=== PATIENT | male | born 1950 | race Caucasian/White ===

== ENCOUNTER 2016-11-01 11:40 | Inpatient (IN) | payer BC, MEDICARE ==
[~2016-11-01] VITALS: Ht 188 cm; Wt 110.4 kg
--- NOTE | ~2016-11-01 | CN ---
Consultation Report [facility] [address] [place]. [address] NAME: JEANA JAFFE : 46 STATUS : ADM IN [facility]#: [id number] AGE: 66 ADM/REG DATE : 11/01/16 MR#: [id number] REPORT SERV DATE: 11/02/16 DICTATED BY: BLAKE MUNIZ DATE: 11/02/16 REPORT STATUS : Draft TRANSCRIBED BY: RADHA DATE: 11/02/16 DATE OF CONSULTATION: 11/02/2016 CHIEF COMPLAINT: Falls and syncope. REASON FOR CONSULTATION: Atrial fibrillation. SOURCE: The patient and the chart. HISTORY OF PRESENT ILLNESS: Mr. Jaffe is a very pleasant 66-year-old white man with history of carotid artery disease, status post previous stroke and right carotid endarterectomy and right carotid stent in 2012 who was in his usual state of health until August when he began having falls. He had a fall 3 days ago and injured his eye. He waited until yesterday to come to the emergency room and was admitted for further care. He has had poor balance, dizziness, and possibly some loss of consciousness. He has tremors when he has these episodes but denies overt tonic-colonic seizure activity. He denies any tongue biting or loss of bowel or bladder control. After these episodes, he has slurred speech. He has not had any palpitations. No chest pain or shortness of breath. ALLERGIES: NO KNOWN DRUG ALLERGIES. MEDICATIONS: As per his home list included albuterol aspirin, carvedilol, cholecalciferol, Vytorin, gabapentin, hydrocodone, meclizine, metformin, phenytoin, ramipril, Aspercreme, and flavonoids. CARDIAC RISK FACTORS: 06/12. PAST MEDICAL HISTORY: Significant for stroke in 2001. At [facility], he had right carotid endarterectomy. He then had right carotid angioplasty and stenting in 2012. He has had herniorrhaphy, cervical disk surgery, and contracture surgery. He has never had any heart problems or atrial fibrillation. SOCIAL HISTORY: The patient lives in [place]. He is . He has two children, alive and well. He is disabled due to stroke. FAMILY HISTORY: Positive for coronary artery disease. Brother had myocardial infarction in his 50s. PHYSICAL EXAMINATION: GENERAL: He is a well-developed, well-nourished, elderly white man, lying in bed on BiPAP in ICU. VITAL SIGNS: The blood pressure is 148/74, pulse 90, temperature 99 degrees Fahrenheit, weight is 105 kg, oxygen saturation 98% on 40% oxygen, and telemetry reveals atrial fibrillation. HEENT: Sclerae anicteric. Lips without cyanosis. Carotids 2+ and symmetrical. Right Consultation Report [address] [place]. [address] NAME: JEANA JAFFE : 46 STATUS : ADM IN [facility]#: [id number] AGE: 66 ADM/REG DATE : 11/01/16 MR#: [id number] REPORT SERV DATE: 11/02/16 DICTATED BY: BLAKE MUNIZ DATE: 11/02/16 REPORT STATUS : Draft TRANSCRIBED BY: RADHA DATE: 11/02/16 carotid endarterectomy scar. LUNGS: Diminished breath sounds throughout. Fair air movement. No use of accessory muscles. HEART: Regular rate and rhythm without any murmur, gallop, or rub. ABDOMEN: Positive bowel sounds. Soft and nontender. EXTREMITIES: Pulses 2+ and symmetrical. No cyanosis, clubbing, or edema. BACK: No CVA tenderness. MUSCULOSKELETAL: Diminished tone. NEUROLOGIC: Alert and oriented x3. IMAGING: EKG reveals atrial fibrillation with a rate of 101 beats per minute, left axis deviation, anterior myocardial infarction of undetermined age. LABORATORY EXAMINATION: Blood gas; pH 7.37, pCO2 45, PO2 94, oxygen saturation 96.8% on BiPAP 15/5, 40%. The chest x-ray reveals satisfactory left PICC line, right basilar discoid atelectasis. Cardiac size remains enlarged. The electrolyte profile, ammonia level was 50, the lactate was 1.3, the sodium 139, potassium 4, chloride 102, CO2 31, glucose 118, BUN 11, creatinine 0.68, and troponin of 0.03. TSH of 1.79. The drug screen, urine positive for cannabinoids otherwise negative. CBC: White count 7.9, hemoglobin 12.5, hematocrit 40.2, and platelets 221,000, INR 1.1. IMAGING STUDIES: Brain CT without contrast, marked motion degraded exam, limits diagnostic ability, stable moderate diffuse cerebral involutional changes and mild deep white matter chronic microvascular ischemic change, old CVA in medial right occipital lobe. No acute intracranial pathology or other acute intracranial pathology. The CT of the chest and the back, minor subsegmental atelectasis, posterior medial right lung base, and posterior segment left upper lobe. No displaced rib fracture, pneumothorax, or cardiomegaly. No acute abdominal or pelvic pathology. Prostate enlargement. The cervical spine markedly non standard imaging planes of the patient's scan in the left side decubitus position with oblique alignment of the cervical spine distorting the usual planes of imaging. No acute fracture or subluxation. Anterior diskectomy and fusion C5 to C7 stable from 2012, moderate to severe degenerative disk disease C7-T1, moderate bony neuroforaminal narrowing bilaterally, increased from 2012, moderate bony neuroforaminal narrowing bilaterally at C3- C4 of uncertain clinical segments increased from 2013. BNP level of 264. The urinalysis, specific gravity 1.005, pH 7, glucose 50, moderate blood, less than 1 red cell, and 2 white cells. We also have a carotid ultrasound from 10/19/2016, right carotid grade 1 less than 50%, left carotid grade 2 50-69%, patent stent right carotid with elevated velocities. Flow could not be visualized in the left vertebral artery, antegrade flow right vertebra. IMPRESSION: 1. New atrial fibrillation, controlled rate. 2. CHADS2 score of at least 2 to 4. 3. History of carotid artery disease, status post prior right carotid endarterectomy and right carotid angioplasty and stenting in 2012 with patency by ultrasound earlier this month. Consultation Report [address] [place]. [address] NAME: JEANA JAFFE : 46 STATUS : ADM IN [facility]#: [id number] AGE: 66 ADM/REG DATE : 11/01/16 MR#: [id number] REPORT SERV DATE: 11/02/16 DICTATED BY: BLAKE MUNIZ DATE: 11/02/16 REPORT STATUS : Draft TRANSCRIBED BY: RADHA DATE: 11/02/16 4. Grade 2 left carotid by ultrasound. 5. Old stroke 2002 at [place]. 6. Falls and syncope, possible seizures or new stroke. 7. Cardiac risk factors of 5/5. 8. Status post cervical disk surgery. 9. Respiratory failure, improving. RECOMMENDATIONS: 1. Check TSH, already done. 2. Echocardiogram. 3. MRI brain or repeat head CT in a few days to look for any new stroke. 4. Neurologic evaluation, EEG. 5. Consider anticoagulation when okay with Neurology. 6. Observation on telemetry. 7. Continue statin therapy. BN/MODL Blake Muniz M.D. / [id number] CC: Nusrat Odell M.D.
--- NOTE | ~2016-11-01 | HP ---
History And Physical [place] [address] [facility] [place]. [address] NAME: JEANA JAFFE : 46 STATUS : ADM IN [facility]#: [id number] AGE: 66 ADM/REG DATE : 11/01/16 MR#: [id number] REPORT SERV DATE: 11/01/16 DICTATED BY: KAREL PIERRE DATE: 11/01/16 REPORT STATUS : Draft TRANSCRIBED BY: MODL DATE: 11/01/16 DATE OF ADMISSION: 11/01/2016 HISTORY OF PRESENT ILLNESS: This is a 66-year-old patient, whom I was asked to see by Dr. Torres. The patient came to the emergency room, was brought in by his family after he fell at home, hitting his left eye on a table. Apparently, the patient has been having frequent falls at home over the last month. He is totally unresponsive during these times. There was no obvious seizure activity noted and no loss of bowel or bladder or tongue biting. During his evaluation in the emergency room, the patient was sent for a CT scan of the head and became somewhat restless and was given 2 mg of IV Ativan. Shortly thereafter, he became more unresponsive. An ABG was done and showed an increased pCO2 and the patient was placed on BiPAP for this reason. He currently is being admitted to the CV ICU for closer monitoring and care and to rule out the possibility of seizure activity or perhaps an arrhythmia causing his multiple falls. The family states that his p.o. intake has decreased over the last few days. He has not traveled anywhere. He has not been exposed to any outdoor tick bites and has had no fevers, nausea, vomiting, diarrhea. There also is no complaint of chest pain. ALLERGIES: THE PATIENT HAS NO KNOWN DRUG ALLERGIES. MEDICATIONS: Currently at home are Ventolin inhaler, aspirin 81 mg, carvedilol 12.5 mg b.i.d., cholecalciferol 2000 unit tablet daily, Vytorin 10/80 at bedtime, Neurontin 300 mg twice daily, hydrocodone 5 mg one tablet three times a day p.r.n., Antivert 25 mg p.o. three times a day p.r.n., Glucophage 500 mg twice daily, phenytoin 300 mg twice daily, ramipril 10 mg daily, Aspercreme p.r.n. for arthritis, and flavonoid for ear ringing. PAST MEDICAL HISTORY: 1. Significant for seizures since 1996, etiology is not entirely clear. Apparently, according to family, he presented with falling. 2. He has history of carotid stent placement done by Dr. Gaffney in 2012. He is status post hernia repair. 3. He has a history of chronic pain. 4. He has cervical spine surgery. 5. Hyperlipidemia. 6. Type 2 diabetes mellitus[address] scan done today, he has a previous CVA. FAMILY HISTORY: Significant for CVA and coronary artery disease and seizures as well. SOCIAL HISTORY: The patient is and retired. Used to work in construction. Lives at home with his . Has two children. Smokes pot, but has no significant history of nicotine abuse or alcohol abuse. REVIEW OF SYSTEMS: Review of systems was unable to be obtained from the patient since he was somnolent and on BiPAP. History And Physical [address] [address] NAME: JEANA JAFFE : 46 STATUS : ADM IN [facility]#: [id number] AGE: 66 ADM/REG DATE : 11/01/16 MR#: [id number] REPORT SERV DATE: 11/01/16 DICTATED BY: KAREL PIERRE DATE: 11/01/16 REPORT STATUS : Draft TRANSCRIBED BY: RADHA DATE: 11/01/16 PHYSICAL EXAMINATION: GENERAL: The patient was extremely somnolent and difficult to arouse. VITAL SIGNS: Blood pressure was high at 172/79, temp is 97.9, pulse is 94, respiratory rate is 21, O2 saturation on 2 L was 94%. HEENT: The patient currently is on BiPAP, barely responsive. Head shows trauma to the left orbit of the eye with possible abrasion of the cornea. Oral mucosa could not be examined. NECK: Supple without JVD, lymphadenopathy, or thyromegaly. LUNGS: Diminished markedly, right base greater than left base. CARDIAC: Reveals an irregularly irregular rhythm. No significant murmurs. ABDOMEN: Obese, nondistended. Bowel sounds are present, but diminished. There are some old bruising of the anterior abdomen. RECTAL/GENITAL: Deferred. EXTREMITIES: Without cyanosis or clubbing, but the patient has significant 1+ edema of the lower extremities with excoriations that the family states are self-inflicted. He also has very fragile appearing skin on the upper extremities, but is not currently on steroids and multiple small ecchymotic areas. NEUROLOGIC: The patient has some decreased range of motion on the left side, but otherwise difficult to determine the rest of his neurologic exam secondary to his obtunded state. LABORATORIES: Urine drug screen was done and was positive for cannabinoids. CT scan of the head was done showed no new hemorrhage, but did show an old CVA in the right occipital lobe. ABG initially showed a pH of 7.23, pCO2 of 84, PO2 of 164 with a bicarbonate of 33, this was on a non-rebreather. White cell count was 7.9, hemoglobin 12, hematocrit 40, and platelet count 221. Repeat ABG on BiPAP showed a pH of 7.30, pCO2 of 62, PO2 of 77, bicarbonate of 29 on 15/, 14 rate, and FiO2 of 50. Cervical spine x-ray showed no acute fracture or subluxation, severe DJD, C7-T1. Procalcitonin is less than 0.05. Sodium 139, potassium 4.0, chloride 102, bicarb 31, BUN 11, creatinine 0.68, glucose 118. LFTs within normal limits. Lipase is normal. Troponin is 0.03. TSH is 1.79. CT scan of the abdomen and pelvis status post trauma showed minor subsegmental atelectasis posterior medial right lung base, posterior segment of the left upper lobe, no displaced rib fracture or pneumothorax, cardiomyopathy. The liver, spleen, gallbladder, pancreas, adrenal glands and kidneys were unremarkable. There also was prostate enlargement with probable BPH. Lactic acid level was 1.3. Ammonia level was 56. TSH was 1.86. LFTs were normal, and Dilantin level was 10.6. ASSESSMENT AND PLAN: 1. This is a 66-year-old patient, who was brought in by family after a major fall at home and has been falling at least for the past month. He has a known history of seizure activity and this could very well be seizure related. Cerebrovascular accident, of course, is a possibility. Neurology has been consulted and will evaluate the patient. It is possible that he was in a postictal state when he was brought in, however, no seizures were noted in the ER. His obtundation at this point more than likely is contributed to by receiving 2 mg of IV Ativan. The patient has no significant history of chronic obstructive pulmonary disease or smoking and so BiPAP will be initiated and kept until the patient is more awake and able to ventilate properly. He will be placed on bronchodilator protocol. 2. Carotid disease, history of coronary artery disease, atrial fibrillation. CHI has been History And Physical [place] [address] [place]. [address] NAME: JEANA JAFFE : 46 STATUS : ADM IN [facility]#: [id number] AGE: 66 ADM/REG DATE : 11/01/16 MR#: [id number] REPORT SERV DATE: 11/01/16 DICTATED BY: KAREL PIERRE DATE: 11/01/16 REPORT STATUS : Draft TRANSCRIBED BY: RADHA DATE: 11/01/16 consulted. 3. Hypertension. We will initiate home medications if possible but if not, he will receive IV Lopressor and/or hydralazine to control his heart rate and his blood pressure and possibly may be even need Cardene drip. 4. Possibility of infection, probably not very high index of suspicion since procalcitonin is less than 0.05, but since the patient has a decrease in mental status. It is always a possibility of aspiration. 5. Type 2 diabetes mellitus will be placed on a sliding insulin scale. His Glucophage will be held. 6. Hyperlipidemia. Continue Vytorin when able. 7. DVT prophylaxis with Lovenox. 8. The patient's condition is extremely guarded and he is at risk for further deterioration from respiratory zuniga and possibly even intubation as well as further seizures and/or neurologic event. Code status has been discussed with the family and they are to discuss and make a decision as to whether or not intubation would be desired if needed. So, total critical care time with this patient was initiated in the emergency room from 5:15 to 6:18 for a total of 63 minutes critical care time. The patient was seen again at 8:40 p.m. since I was called away for a code and for an additional 30 minutes and further evaluation in the CV ICU for a total of 93 minutes CCM time. OLIMPIA/RADHA Karel Pierre M.D. / [id number] CC: Nusrat Odell M.D.
--- NOTE | ~2016-11-01 | CN ---
Consultation Report [facility] [address] [place]. [address] NAME: JEANA JAFFE : 46 STATUS : ADM IN [facility]#: [id number] AGE: 66 ADM/REG DATE : 11/01/16 MR#: [id number] REPORT SERV DATE: 11/01/16 DICTATED BY: LUIS HARTMAN DATE: 11/01/16 REPORT STATUS : Draft TRANSCRIBED BY: RADHA DATE: 11/01/16 NEUROLOGICAL EVALUATION CONSULTATION CVICU. DATE OF CONSULTATION: 11/01/2016 LOCATION OF THE PATIENT: CVICU, Bed 17. HISTORY OF PRESENT ILLNESS: This is a 66-year-old male with known history of seizure disorder, past history of CVA, carotid endarterectomy, history of COPD, diabetes mellitus, coronary artery disease who was admitted through the emergency room after an episode of falling, loss of consciousness, possible seizures, and head trauma. The patient's family provided additional history. The patient's stated that the patient has had seizures since 2001. At that time, the patient has suffered a stroke, which left him with residual left-sided weakness and tremor. The patient has been taking Dilantin 300 mg twice a day provided by primary physician. The patient has not seen a neurologist in the last 10 years. The patient has had several episodes of falling, which were described as primary attacks that the patient himself could not describe when questioned by his daughters. The daughter, who provided additional information stated that the patient would just fall and would regain consciousness as soon as he would "hit the floor." There was no urinary incontinence associated with these episodes. No episodes of tonic-clonic activity were described. The patient has had seizures intermittently despite the fact that he has been apparently taking his Dilantin on a regular basis. PAST MEDICAL HISTORY: Significant history of hypertension, coronary artery disease, diabetes mellitus, hypercholesterolemia, COPD, and history of seizure disorder since CVA in 2001. ALLERGIES: NO KNOWN ALLERGIES. MEDICATIONS: Prior to admission at home included phenytoin 300 mg twice a day (three 100 mg capsules twice a day), gabapentin 300 mg at bedtime, b.i.d., meclizine 25 mg t.i.d., "Flavonoid" one tablet p.o. daily, aspirin chewable 81 mg p.o. daily, carvedilol 12.5 mg p.o. b.i.d., ezetimibe/simvastatin 10/80, which is Vytorin 10/80 one tablet p.o. daily, ramipril 10 mg p.o. daily, metformin 500 mg p.o. twice a day, vitamin D 2000 units one tablet p.o. daily. FAMILY HISTORY: Significant history of stroke in the patient's sister. Family history of epilepsy in several members of the patient's family. PAST SURGICAL HISTORY: Includes carotid endarterectomy and cervical spine surgery with titanium plate implanted. REVIEW OF SYSTEMS: As mentioned before, the patient's family stated that the patient has had episodes of falling as described above. Has no recollection or an aura preceding the falls. No history Consultation Report [address] [place]. [address] NAME: JEANA JAFFE : 46 STATUS : ADM IN [facility]#: [id number] AGE: 66 ADM/REG DATE : 11/01/16 MR#: [id number] REPORT SERV DATE: 11/01/16 DICTATED BY: LUIS HARTMAN DATE: 11/01/16 REPORT STATUS : Draft TRANSCRIBED BY: RADHA DATE: 11/01/16 of chest pain or shortness of breath. The patient apparently has chronically uses inhalants albuterol one puff p.r.n. and every four hours as needed. No recent complaints of chest pain voiced. The patient did not have recent seizure. His last MRI is not clear when the patient had. He is apparently extremely claustrophobic. The patient has not been very cooperative. He has been followed by his primary physician, who will arrange for the patient to have an appointment with Dr. Wright, neurologist. The appointment scheduled at the end of February. The rest of 14-point of review of systems was negative. SOCIAL HISTORY: By description, the patient appears to have some cognitive problems since his stroke, left-sided neglect, and tremor involving the left arm has a stooped posture since his cervical spine surgery with neck bent forward, and the patient has a and several daughters. Social history otherwise is negative for alcohol use, not clear about cigarette smoking. The patient's carboxyhemoglobin was elevated on admission to the emergency room. His drug screen was positive for cannabinoids. PHYSICAL EXAMINATION: GENERAL: The patient was somnolent, difficult to arouse, not clear whether he received any medications on route in the emergency room, was on BiPAP. VITAL SIGNS: His blood pressure was 176/80, pulse was 111, respirations 20, temperature afebrile. HEAD AND NECK: Showed signs of recent trauma, which involved the left orbit and swelling in the upper lid was noted. The patient's left eye appeared ecchymotic. Pupils were small, reactive to light. The patient was not following commands or responding to painful stimuli. He was in left lateral position, which as per family is his preferred position secondary to the titanium plate in the cervical spine and kyphosis that he has had since his cervical surgery. The patient was on BiPAP, appeared have regular respiratory rate. Did not appear in acute distress. Appeared? Postictal and neck moderate limitation of cervical, passive range of motion was noted. CHEST: Symmetrical. Lungs: Showed crackles at the bases bilaterally. HEART: Auscultation of the heart, regular S1 and S2. Sinus tachycardia. Small healing hematoma was noted in the right upper abdomen secondary to previous falls. ABDOMEN: Obese. Appear soft and nontender. No organomegaly was detected. EXTREMITIES: Showed swelling bilateral in distal legs with trophic changes. Most likely, combination of diabetes and peripheral neuropathy with red shiny skin. Peripheral pulses were present throughout. SKIN: No petechiae, hemorrhages, or rash noted. NEUROLOGICAL EXAMINATION: The patient appeared postictal, did not respond to verbal stimuli. However, had strong withdrawal to painful stimuli in both lower extremities with bilateral Babinskis noted and withdrawal was more robust in the right arm than on the left. CRANIAL NERVE EXAMINATION 2 THROUGH 12: Visual harvey on confrontation could not be tested. The patient was not cooperative. Pupils were small, 2 mm reacted to light. There was no dysconjugate gaze. Corneal reflexes were present. No significant facial asymmetry was noted on examination. The rest of examination was very difficult to perform in view of Consultation Report [address] [place]. [address] NAME: JEANA JAFFE : 46 STATUS : ADM IN [facility]#: [id number] AGE: 66 ADM/REG DATE : 11/01/16 MR#: [id number] REPORT SERV DATE: 11/01/16 DICTATED BY: LUIS HARTMAN DATE: 11/01/16 REPORT STATUS : Draft TRANSCRIBED BY: MODL DATE: 11/01/16 patient's condition. MOTOR EXAM: Left arm appeared slightly more flaccid. Deep tendon reflexes were absent throughout. Babinski were positive bilaterally. SENSORY EXAM: Withdrawal to pain was symmetrical in both lower extremities. Left arm appeared more flaccid. LABORATORY STUDIES: Sodium 139, potassium 4, chloride 102, carbon dioxide 31, BUN 11, creatinine 0.68, GFR 98, glucose 118, calcium 8.6, total protein 7.1, albumin 3.5, globulin 3.6, total bilirubin 0.3, alkaline phosphatase 110, ALT 19, AST 12, lipase 185, B- natriuretic was 264.1, troponin 0.03. Drug screen positive for cannabinoids. TSH 1.79. Urinalysis essentially negative. Specific gravity 1.005, pH 7, glucose 50, ketones negative. ABGs; pH 7.3 initially 7.23, CO2 62, PCO2 84, bicarb 29.7 and 33.9, oxygen saturation low initially at 94.1, repeat 98.7, carboxyhemoglobin 3.5, methemoglobin 0.2 at O2 of 50%. CT scan of the head, extremely downgraded picture secondary to motion artifact with abnormal head positioning. Part of frontal lobes was not imaged secondary to poor cooperation. The patient's scan was positive for an area of encephalomalacia involving right occipital region secondary to the patient's stroke, which occurred in 2001. Moderate ventricular dilatation was noted. Skin was motion degraded. IMPRESSION: 1. Episodes of falling could not rule out recurrent seizures. The patient has recurrent seizures. History of seizure disorder since 2001, after at the cerebral vascular accident. 2. Cerebrovascular accident history 2001, possible recent stroke. 3. Long-standing history of Dilantin use. Rule out folate deficient, rule out deficiency, rule out osteoporosis, rule out peripheral neuropathy, has complications of long-term use of Dilantin. 4. History of cervical spine surgery with titanium plate implanted. 5. History of possible tobacco abuse chronic obstructive pulmonary disease. 6. Drug screen positive for cannabinoids. 7. Could not rule out a new stroke. 8. Rule out aspiration. 9. Recurrent falls with recurrent episodes of head trauma rule out postconcussive syndrome. 10.Partially treated seizures. The patient has seen a neurologist. Has been followed by primary physician since 2001. 11.Seizure precaution. 12.Risk of falling and injury. 13.Follow seizure precautions. No driving or operating heavy movement machinery, climbing heights or ladders. We will obtain repeat Dilantin level since the Dilantin level on admission was 10.2 - Subtherapeutic for seizure patient expect Dilantin levels to be around 15 to be effective and therapeutic. Recommend to add additional 500 mg of fosphenytoin IV. Stat monitor the patient's blood pressure while infusing it at rate 50 mg/minute, serum vitamin B12, folate Consultation Report [facility] [address] [place]. [address] NAME: JEANA JAFFE : 46 STATUS : ADM IN PAT#: [id number] AGE: 66 ADM/REG DATE : 11/01/16 MR#: [id number] REPORT SERV DATE: 11/01/16 DICTATED BY: LUIS HARTMAN DATE: 11/01/16 REPORT STATUS : Draft TRANSCRIBED BY: RADHA DATE: 11/01/16 level, and vitamin D levels. MRI of the brain to rule out a new stroke or cerebral contusion. Monitor the patient for deteriorating respiratory status secondary to possible aspiration. History of carotid endarterectomy and coronary artery disease predisposes the patient to have increased risk of a stroke. I recommend for the patient to receive stroke education prior to his discharge even if the patient's MRI is not positive for an acute stroke. Cardiac workup with echocardiogram prior to the patient's discharge is recommended. Thank you for allowing us to participate in this patient's care. BAY/RADHA Luis Hartman MD / [id number] CC: Nusrat Odell M.D.
--- NOTE | ~2016-11-01 | DS ---
Discharge Summary [facility] [address] [place]. [address] NAME: JEANA JAFFE : 46 STATUS : DIS IN PAT#: [id number] AGE: 66 ADM/REG DATE : 11/01/16 MR#: [id number] REPORT SERV DATE: 11/06/16 DICTATED BY: SHAHEEN BLACKWOOD DATE: 11/05/16 REPORT STATUS : Draft TRANSCRIBED BY: MODL DATE: 11/05/16 ADMISSION DATE: 11/01/2016 DISCHARGE DATE: 11/05/2016 DISCHARGE DIAGNOSES: 1. Acute hypercapnic respiratory failure, resolving. 2. Multiple falls at home prior to admission. 3. Chronic atrial fibrillation and an apical thrombus per echocardiogram on this admission. 4. History of cerebrovascular accident; history of seizure disorder, recurrent seizures with subtherapeutic Dilantin levels; and questionable syncopal episode. 5. Hypertension. 6. Diabetes type 2 with hemoglobin A1c of 8.1. 7. Depression. 8. History of coronary artery disease and carotid stenosis. 9. History of chronic obstructive pulmonary disease. DISCHARGE MEDICATIONS: Aspirin 162 mg daily, Coreg 12.5 mg twice a day, vitamin D 2000 units daily, Vytorin one tablet p.o. daily, gabapentin 300 mg twice a day, Dilantin 300 mg twice a day, Altace 10 mg daily, Ventolin inhaler two puffs inhaled p.r.n. for shortness of breath every four hours, meclizine 25 mg three times a day p.r.n. for vertigo, metformin 500 mg twice a day, Doyline 5/325 one tablet three times a day p.r.n. for pain, and Aspercreme p.r.n. These medications to be adjusted by [facility] upon arrival to home as [facility] will be admitting the patient to their service. HISTORY OF PRESENT ILLNESS: A 66-year-old male who was originally seen by Dr. Meredith Pierre in the emergency room after a fall and shown to have a hypercapnic respiratory failure. Please see her initial H and P as the patient admitted to the [facility] and spent from 11/01/2016 to 11/03/2016 in the ICU, where he necessitated use of BiPAP therapy. Hospitalist Service assumed care after the patient was transferred out of the ICU on 11/04/2016, where I began seeing the patient. CONSULTANTS DURING THIS ADMISSION: Include Neurology, Dr. Luis Hartman and collector of aquarium specimens, Dr. Darrius Gaffney. PROCEDURES AND IMAGING DURING THIS ADMISSION: Include a CT of the cervical spine showing markedly nonstandard imaging. He was scanned in the left-sided decubitus position, but no acute fracture or subluxation noted; anterior diskectomy and fusion of C5-C7, stable from 2012; [id number] degenerative disk disease C7-T1 with moderate bony neural foraminal narrowing bilaterally at this level, increased from 2013 and moderate bony neural foraminal narrowing bilaterally at C3-C4 of uncertain clinical segments. CT of the abdomen and pelvis showing some minor atelectasis at the lung bases, cardiomegaly, but otherwise no acute abdominal or pelvic pathology noted, some prostate enlargement, however. CT of the chest, again as stated, minor atelectasis at lung bases, no rib fractures, no pneumothorax, and cardiomegaly noted. An echocardiogram showed normal LV size and systolic function with an ejection fraction of 65%; mild concentric LVH; normal RV size and systolic function; mild Discharge Summary [address] [address] NAME: JEANA JAFFE : 46 STATUS : DIS IN [facility]#: [id number] AGE: 66 ADM/REG DATE : 11/01/16 MR#: [id number] REPORT SERV DATE: 11/06/16 DICTATED BY: SHAHEEN BLACKWOOD DATE: 11/05/16 REPORT STATUS : Draft TRANSCRIBED BY: MODL DATE: 11/05/16 left atrial enlargement; filling defect with intravenous contrast, highly suspicious for thrombus. There is moderate sized echo of bright density in the left ventricular apex with the attachment to the anterior septal wall suggesting mural thrombus. A repeat CT of the brain showing no acute infarct or hemorrhage, mild atrophy and chronic white matter ischemic changes, old infarcts in the right frontal lobe and right occipital lobe. CT brain was performed on 11/04/[address] of the brain performed on 11/01/2016, showed stable moderate diffuse cerebral involutional changes, mild deep white matter chronic microvascular ischemic changes, old CVA medial right occipital lobe. No acute hemorrhage or other intracranial pathology. CONTINUATION IN HOSPITAL COURSE: As stated, the patient was in the ICU from 11/01/2016 to 11/03/2016. I began seeing the patient on 11/04/2016, where his respiratory failure began to resolve. He was not currently on BiPAP, was resting in bed, extremely drowsy with some persistent confusion and grogginess. After awakening the patient, he was somewhat belligerent and continued stating that he did not wish to continue medical therapy and just wanted to go home. He stated this with his family members present at bedside too. They were concerned about some depression. Remeron was added to his overall regimen as he had not been on antidepressants before and oxygen was continued to be weaned down. Initially, plan was for PT and OT evaluations as the patient would benefit from rehab placement. However, the patient is refusing rehab and after further discussions with the family members, they did not wish to send him to rehab. Had a lengthy discussion with family members, , daughters, and granddaughters present and with the patient and all have agreed that the best course forward was to pursue home with hospice as he has had a degrading quality of life for some years, so the patient was discharged home under the care of his family where [facility] will be admitting the patient once he is at home under their care. He was discharged on the above medicines. Again, those will be adjusted by [facility] and family did not wish to continue any anticoagulation. He was given prescriptions for Keppra, Ativan, and Remeron, however, if they wish to continue these. Please note, greater than 30 minutes were spent on this discharge for medication teaching, family meeting, further disposition. CSC/MODL Ab Holloway NP Shaheen Blackwood M.D. / [id number] CC: Shaheen Blackwood M.D. Discharge Summary [address] [place]. [id number] NAME: JEANA JAFFE GREER : 46 STATUS : DIS IN [facility]#: [id number] AGE: 66 ADM/REG DATE : 11/01/16 MR#: [id number] REPORT SERV DATE: 11/06/16 DICTATED BY: SHAHEEN BLACKWOOD DATE: 11/05/16 REPORT STATUS : Draft TRANSCRIBED BY: RADHA DATE: 11/05/16 Justen Kuhn M.D.
--- NOTE | ~2016-11-01 | SLEEP ---
[facility] [id number] [place]. [address] NAME: JEANA JAFFE : 46 STATUS : ADM IN PAT#: [id number] AGE: 66 ADM/REG DATE : 11/01/16 MR#: [id number] REPORT SERV DATE: 11/02/16 DICTATED BY: DATE: REPORT STATUS : Draft TRANSCRIBED BY: MODL DATE: 11/02/16 SCALP EEG HISTORY: This is a 66-year-old gentleman with history of seizure disorder for over 10 years, on Dilantin. Admitted for sudden syncopal attacks/drop attacks without warning, he will just lose consciousness and hit the floor. Found to also have atrial fibrillation with rapid ventricular response and thrombus in the heart on echo. Please evaluate for seizures, he is on Dilantin. He received Ativan last night and he was on Precedex also overnight. FINDING: Background activity is symmetric from the parieto-occipital region with a frequency of 7 hertz. Study captured episodes of evidence of drowsy state with the presence of central sleep vertex and sleep spindles. Also captured triphasic waves briefly from the frontal region on the left. No epileptiform discharges were captured in this recording. Significant movement artifacts were captured during this recording. IMPRESSION: This is an awake and drowsy EEG with the presence of a few triphasic waves. No epileptiform discharges were captured or abnormal asymmetry or seizure focus captured in this recording. Triphasic waves can be seen with hepatic encephalopathy or toxic metabolic state. This patient has an ammonia level of 50 and it could be contributing. SANTIAGO/MODL Mak Mukherjee M.D. / [id number] CC: Nusrat Odell M.D.
[~2016-11-01 11:40] MED LIST: ALTACE10 MG PO; ASAB PO; COREG12 PO; D100 PO; GLUCPH PO; NEUR300 PO; PLAVIX PO; STOOL SOFTEN240 MG PO; ULTRAM50 PO; VYTORIN 10/80 T1 TAB PO
[2016-11-01 14:10] LABS: ALBUMIN 3.5 G/DL (3.5-5.0); ALKALINE PHOSPHATASE 110 U/L (45-117); BUN (BLOOD UREA NITROGEN) 11 MG/DL (6-23); CALCIUM, SERUM 8.6 MG/DL (8.5-10.4); CHLORIDE, SERUM 102 MMOL/L (96-112); CO2 (CARBON DIOXIDE) 31 MMOL/L (24-34); CREATININE 0.68 MG/DL (0.70-1.30); GFR AFRICAN AMERICAN 114 ML/MIN (>=60); GFR NON AFRICAN AMERICAN 98 ML/MIN (>=60); GLOBULIN 3.6 G/DL (2.5-4.1); GLUCOSE, SERUM 118 MG/DL (60-99); SGOT(AST) 12 U/L (5-40); SGPT(ALT) 19 U/L (5-65); SODIUM, SERUM 139 MMOL/L (135-148); TOTAL BILIRUBIN 0.3 MG/DL (0-1.2); TOTAL PROTEIN 7.1 G/DL (6.0-8.5); TROPONIN I 0.03 NG/ML (<0.05)
[2016-11-01 15:07] LABS: ASCORBIC ACID (UR NOT ORDER) NEG (NEG); BILIRUBIN, URINE NEGATIVE (NEG); ER URINALYSIS TAT 0 Hrs 12 Mins; KETONE, URINE NEGATIVE (NEG); LEUKOCYTE ESTERASE(NOT OR NEG (NEG); NITRITE (URINE) NEG (NEG); WBC (NOT ORDERED) (RFLEX) 2 (0-5)
[2016-11-01 16:38] LABS: BE (BASE EXCESS) 3.6 MEQ/L (0 +/- 2.5); CARBOXYHEMOGLOBIN 3.4 % (0-3); HCO3 (ACTUAL BICARBONATE) 33.9 MEQ/L (23-27); HEMOBLOGIN CONTENT 13.4 G/DL (14-18); INSTRUMENT SERIAL # 8087; METHEMOGLOBIN 0.2 % (0-3); O2 CONTENT 18.2 VOL% (18-24); PCO2 (CO2 TENSION) 84 MMHG (35-45); PO2 (O2 TENSION) 162 MMHG (79-93); pH 7.23 (7.37-7.43)
[2016-11-01 16:39] LABS: ALLENS TEST Pos; DEVICE NRB; OPERATOR ID 11657; SAMPLE Arterial
[2016-11-01 16:44] LABS: BASOPHILS 0.1 %; BASOPHILS ABSOLUTE 0.01 10/3/uL (0.0-0.16); EOSINOPHILS 1.6 %; EOSINOPHILS ABSOLUTE 0.13 10/3/uL (0.0-0.53); ER CBC TAT 0 Hrs 05 Mins; HEMATOCRIT 40.2 % (40.0-51.0); HEMOGLOBIN 12.5 g/dL (13.6-17.8); IMMATURE GRANULOCYTES 0.1 %; IMMATURE GRANULOCYTES ABSOLUTE 0.01 10/3/uL (0.0-0.11); LYMPHOCYTES 15.8 %; LYMPHOCYTES ABSOLUTE 1.25 10/3/uL (0.67-4.30); MEAN PLATELET VOLUME 9.9 fL (9.2-13.0); MONOCYTES 11.5 %; MONOCYTES ABSOLUTE 0.91 10/3/uL (0.21-1.20); NEUTROPHILS 70.9 %; NEUTROPHILS ABSOLUTE 5.58 10/3/uL (2.02-8.40); PLATELET COUNT 221 10/3/uL (150-400); RBC DISTRIBUTION WIDTH 14.5 % (12.0-16.0); RED CELL COUNT 4.63 10/6/uL (4.7-6.1); WHITE BLOOD CELLS 7.9 10/3/uL (4.5-10.5)
[2016-11-01 16:45] LABS: MANUAL DIFF NO %; MEAN CORPUS HGB CONC 31.1 g/dL (32.0-36.0); MEAN CORPUSCULAR VOLUME 86.8 fL (80-100)
[2016-11-01 16:53] LABS: INTERNATIONAL NORMAL RATI 1.1 UNITS (-); PROTIME (NOT ORD) 13.8 SEC (12.0-14.5)
[2016-11-01 16:55] LABS: AMPHETAMINES (NOT ORD) NEG (NEG); BARBITURATES (NOT ORDERED NEG (NEG); BENZODIAZEPINES (NOT ORD) NEG (NEG); CANNABINOIDS (THC) POS (NEG); COCAINE (NOT ORDERED) NEG (NEG); OPIATES NEG (NEG); PHENCYCLIDINE(PCP) NEG (NEG); TRICYCLICS NEG (NEG)
[2016-11-01] MEDS ORDERED: VENTOLIN HFA INH (17:12)
[2016-11-01] MEDS ORDERED: NEUR300 PO (17:12)
[2016-11-01] MEDS ORDERED: D100 PO (17:12)
[2016-11-01] MEDS ORDERED: MCZ25 PO (17:13)
[2016-11-01] MEDS ORDERED: COREG12 PO (17:14)
[2016-11-01] MEDS ORDERED: ASAB PO (17:14)
[2016-11-01] MEDS ORDERED: FLAVONOID PO (17:14)
[2016-11-01] MEDS ORDERED: VYTORIN 10/80 T1 TAB PO (17:14)
[2016-11-01] MEDS ORDERED: VITAMIN D2000 UNIT PO (17:15)
[2016-11-01] MEDS ORDERED: GLUCPH PO (17:15)
[2016-11-01] MEDS ORDERED: ALTACE10 MG PO (17:15)
[2016-11-01] MEDS ORDERED: NORCO1 TA1 PO (17:16)
[2016-11-01] MEDS ORDERED: ASPERCREME TOP (17:17)
[2016-11-01 17:37] LABS: ALLENS TEST Pos; BE (BASE EXCESS) 1.8 MEQ/L (0 +/- 2.5); BIPAP 15/5 cm.H2O; CARBOXYHEMOGLOBIN 3.5 % (0-3); HCO3 (ACTUAL BICARBONATE) 29.7 MEQ/L (23-27); HEMOBLOGIN CONTENT 13.2 G/DL (14-18); INSTRUMENT SERIAL # 8087; METHEMOGLOBIN 0.2 % (0-3); O2 CONTENT 16.9 VOL% (18-24); OPERATOR ID 11657; PCO2 (CO2 TENSION) 62 MMHG (35-45); PO2 (O2 TENSION) 77 MMHG (79-93); SAMPLE Arterial
[2016-11-01 17:51] LABS: PROCALCITONIN <0.05 ng/mL (<0.5)
[2016-11-01 18:23] LABS: LACTATE 1.3 MMOL/L (0.3-2.4)
[2016-11-01 18:27] LABS: DILANTIN (PHENYTOIN) 10.6 MCG/ML (10.0-20.0)
[2016-11-01 19:30] LABS: ALBUMIN 3.8 G/DL (3.5-5.0); SGPT(ALT) 23 U/L (5-65); TOTAL BILIRUBIN 0.4 MG/DL (0-1.2); TOTAL PROTEIN 7.9 G/DL (6.0-8.5)
[2016-11-01 19:32] LABS: ALKALINE PHOSPHATASE 122 U/L (45-117); DIRECT BILIRUBIN < 0.1 MG/DL (0.0-0.4); INDIRECT BILIRUBIN(NOT ORDER) 0.3 MG/DL (0.1-0.9); SGOT(AST) 25 U/L (5-40)
[2016-11-01 21:22] LABS: ALLENS TEST Pos; BE (BASE EXCESS) 4.3 MEQ/L (0 +/- 2.5); CARBOXYHEMOGLOBIN 1.2 % (0-3); DEVICE NC; HCO3 (ACTUAL BICARBONATE) 31.1 MEQ/L (23-27); HEMOBLOGIN CONTENT 12.4 G/DL (14-18); INSTRUMENT SERIAL # 11843; METHEMOGLOBIN 0.4 % (0-3); O2 CONTENT 15.7 VOL% (18-24); PCO2 (CO2 TENSION) 56 MMHG (35-45); PO2 (O2 TENSION) 63 MMHG (79-93); SAMPLE Arterial; pH 7.36 (7.37-7.43)
[2016-11-02 04:16] LABS: ALLENS TEST Pos; BE (BASE EXCESS) 3.1 MEQ/L (0 +/- 2.5); CARBOXYHEMOGLOBIN 1.3 % (0-3); DEVICE HFNC; HCO3 (ACTUAL BICARBONATE) 32.5 MEQ/L (23-27); HEMOBLOGIN CONTENT 13.1 G/DL (14-18); INSTRUMENT SERIAL # 11843; METHEMOGLOBIN 0.4 % (0-3); O2 CONTENT 17.7 VOL% (18-24); PCO2 (CO2 TENSION) 75 MMHG (35-45); PO2 (O2 TENSION) 112 MMHG (79-93); SAMPLE Arterial; pH 7.25 (7.37-7.43)
[2016-11-02 04:31] LABS: DILANTIN (PHENYTOIN) 11.1 MCG/ML (10.0-20.0); FOLATE 16.5 NG/ML (>5.2)
[2016-11-02 05:55] LABS: BUN (BLOOD UREA NITROGEN) 8 MG/DL (6-23); CALCIUM, SERUM 8.2 MG/DL (8.5-10.4); CHLORIDE, SERUM 101 MMOL/L (96-112); CREATININE 0.64 MG/DL (0.70-1.30); GFR AFRICAN AMERICAN 117 ML/MIN (>=60); GFR NON AFRICAN AMERICAN 101 ML/MIN (>=60); POTASSIUM, SERUM 4.1 MMOL/L (3.5-5.3); SODIUM, SERUM 139 MMOL/L (135-148)
[2016-11-02 05:57] LABS: GLUCOSE, SERUM 150 MG/DL (60-99)
[2016-11-02 06:05] LABS: CO2 (CARBON DIOXIDE) 31 MMOL/L (24-34)
[2016-11-02 10:00] LABS: ALLENS TEST Pos; BE (BASE EXCESS) -0.3 MEQ/L (0 +/- 2.5); BIPAP 15/5 cm.H2O; CARBOXYHEMOGLOBIN 1.1 % (0-3); HCO3 (ACTUAL BICARBONATE) 25.3 MEQ/L (23-27); HEMOBLOGIN CONTENT 13.2 G/DL (14-18); INSTRUMENT SERIAL # 11843; METHEMOGLOBIN 0.3 % (0-3); O2 CONTENT 17.8 VOL% (18-24); PCO2 (CO2 TENSION) 45 MMHG (35-45); PO2 (O2 TENSION) 94 MMHG (79-93); SAMPLE Arterial; pH 7.37 (7.37-7.43)
[2016-11-03 06:16] LABS: BASOPHILS 0.2 %; BASOPHILS ABSOLUTE 0.02 10/3/uL (0.0-0.16); EOSINOPHILS 2.9 %; EOSINOPHILS ABSOLUTE 0.23 10/3/uL (0.0-0.53); HEMATOCRIT 40.4 % (40.0-51.0); HEMOGLOBIN 12.2 g/dL (13.6-17.8); IMMATURE GRANULOCYTES 0.2 %; IMMATURE GRANULOCYTES ABSOLUTE 0.02 10/3/uL (0.0-0.11); LYMPHOCYTES ABSOLUTE 1.21 10/3/uL (0.67-4.30); MANUAL DIFF NO %; MEAN CORPUS HGB CONC 30.2 g/dL (32.0-36.0); MEAN CORPUSCULAR HEMOGLOB 26.8 pg (26.0-34.0); MEAN CORPUSCULAR VOLUME 88.6 fL (80-100); MONOCYTES 10.3 %; MONOCYTES ABSOLUTE 0.83 10/3/uL (0.21-1.20); NEUTROPHILS 71.4 %; NEUTROPHILS ABSOLUTE 5.74 10/3/uL (2.02-8.40); PLATELET COUNT 192 10/3/uL (150-400); RBC DISTRIBUTION WIDTH 14.1 % (12.0-16.0); RED CELL COUNT 4.56 10/6/uL (4.7-6.1); WHITE BLOOD CELLS 8.1 10/3/uL (4.5-10.5)
[2016-11-03 06:27] LABS: BUN (BLOOD UREA NITROGEN) 8 MG/DL (6-23); CALCIUM, SERUM 8.5 MG/DL (8.5-10.4); CHLORIDE, SERUM 102 MMOL/L (96-112); CO2 (CARBON DIOXIDE) 31 MMOL/L (24-34); CREATININE 0.85 MG/DL (0.70-1.30); DILANTIN (PHENYTOIN) 13.8 MCG/ML (10.0-20.0); GFR AFRICAN AMERICAN 104 ML/MIN (>=60); GFR NON AFRICAN AMERICAN 90 ML/MIN (>=60); GLUCOSE, SERUM 134 MG/DL (60-99); PHOSPHORUS, SERUM 3.7 MG/DL (2.5-4.5); POTASSIUM, SERUM 3.9 MMOL/L (3.5-5.3); SODIUM, SERUM 139 MMOL/L (135-148)
[2016-11-04 02:52] LABS: BASOPHILS 0.1 %; BASOPHILS ABSOLUTE 0.01 10/3/uL (0.0-0.16); EOSINOPHILS 4.1 %; EOSINOPHILS ABSOLUTE 0.28 10/3/uL (0.0-0.53); HEMATOCRIT 38.6 % (40.0-51.0); HEMOGLOBIN 11.7 g/dL (13.6-17.8); LYMPHOCYTES 16.2 %; MEAN CORPUS HGB CONC 30.3 g/dL (32.0-36.0); MEAN CORPUSCULAR HEMOGLOB 26.5 pg (26.0-34.0); MEAN CORPUSCULAR VOLUME 87.5 fL (80-100); MEAN PLATELET VOLUME 9.7 fL (9.2-13.0); MONOCYTES 11.5 %; MONOCYTES ABSOLUTE 0.78 10/3/uL (0.21-1.20); NEUTROPHILS 68.1 %; NEUTROPHILS ABSOLUTE 4.61 10/3/uL (2.02-8.40); PLATELET COUNT 189 10/3/uL (150-400); RBC DISTRIBUTION WIDTH 14.2 % (12.0-16.0); RED CELL COUNT 4.41 10/6/uL (4.7-6.1); WHITE BLOOD CELLS 6.8 10/3/uL (4.5-10.5)
[2016-11-04 02:53] LABS: MANUAL DIFF NO %
[2016-11-04 03:03] LABS: PROTIME (NOT ORD) 13.5 SEC (12.0-14.5)
[2016-11-04 03:05] LABS: PARTIAL THROMBO TIME 107.7 SEC (22.5-37.2)
[2016-11-04 03:13] LABS: BUN (BLOOD UREA NITROGEN) 10 MG/DL (6-23); CALCIUM, SERUM 8.3 MG/DL (8.5-10.4); CHLORIDE, SERUM 102 MMOL/L (96-112); CO2 (CARBON DIOXIDE) 32 MMOL/L (24-34); CREATININE 0.96 MG/DL (0.70-1.30); GFR AFRICAN AMERICAN 94 ML/MIN (>=60); GFR NON AFRICAN AMERICAN 81 ML/MIN (>=60); GLUCOSE, SERUM 137 MG/DL (60-99); PHOSPHORUS, SERUM 3.4 MG/DL (2.5-4.5); POTASSIUM, SERUM 4.4 MMOL/L (3.5-5.3); SODIUM, SERUM 139 MMOL/L (135-148)
[2016-11-04 03:47] LABS: DILANTIN (PHENYTOIN) 13.4 MCG/ML (10.0-20.0)
== END 2016-11-05 17:17 | disposition hospice, home (50) | DRG 189 ==
LOC: ENRESERVDT → ENRESERV → ENRESERVTM → ER 11:40 → 7NO 17:43 → CVICU 17:43 → 7NO 11-03 15:17
PROVIDERS: Emergency Medicine; Internal Medicine; Internal Medicine Pulmonary Disease; Student in an Organized Health Care Education/Training Program
PROC: 5A09357 Assistance with Respiratory Ventilation, Less than 24 Consecutive Hours, Continuous Positive Airway Pressure (ICD-10-PCS; 2016-11-01)
PROC: 02HV33Z Insertion of Infusion Device into Superior Vena Cava, Percutaneous Approach (ICD-10-PCS; principal; 2016-11-02)
DX: J96.02 Acute respiratory failure with hypercapnia (principal); I51.3 Intracardiac thrombosis, not elsewhere classified; J44.9 Chronic obstructive pulmonary disease, unspecified; I48.2 Chronic atrial fibrillation; G40.909 Epilepsy, unspecified, not intractable, without status epilepticus; I10 Essential (primary) hypertension; E11.9 Type 2 diabetes mellitus without complications; I69.398 Other sequelae of cerebral infarction; E78.5 Hyperlipidemia, unspecified; I25.10 Atherosclerotic heart disease of native coronary artery without angina pectoris; I25.2 Old myocardial infarction; F12.90 Cannabis use, unspecified, uncomplicated; W19.XXXA Unspecified fall, initial encounter; M50.323 Other cervical disc degeneration at C6-C7 level; M51.34 Other intervertebral disc degeneration, thoracic region; G89.29 Other chronic pain; Z91.81 History of falling; Z88.8 Allergy status to other drugs, medicaments and biological substances; Z79.899 Other long term (current) drug therapy; Z79.82 Long term (current) use of aspirin; Z98.890 Other specified postprocedural states; Z82.49 Family history of ischemic heart disease and other diseases of the circulatory system; Z82.3 Family history of stroke; Z86.73 Personal history of transient ischemic attack (TIA), and cerebral infarction without residual deficits; Z79.84 Long term (current) use of oral hypoglycemic drugs; Z98.1 Arthrodesis status; Z95.828 Presence of other vascular implants and grafts
CPT/HCPCS: 36569; 36600; 70450; 70470; 71010; 71250; 72125; 73130-LT; 74176; 80048; 80053; 80076; 80185; 80305; 80307; 81001; 82140; 82607; 82746; 82805; 82962; 83036; 83605; 83690; 83735; 83880; 84100; 84145; 84443; 84484; 85025; 85610; 85730; 87040; 87641; 93005; 94660; 95819; 96374; 99285; A9270-GY; C1751; C8929; J0360; J0456; J1120; J3475; Q2009; Q9957; Q9967